=== PATIENT | female | born 1985 | race Caucasian/White ===

== ENCOUNTER → 2016-12-30 | Outpatient (CLI) | payer OTHER ==
[2016-12-30 19:21] LABS: FREE T3 5.01 pg/mL (2.77-5.27)
[2016-12-30 19:34] LABS: THYROID STIMULATING HORMONE 2.64 uIU/mL (0.47-4.68)
== END ==
LOC: OD 16:40
PROVIDERS: ATTEND Physician Assistant Surgical
DX: E07.9 Disorder of thyroid, unspecified (principal)
CPT/HCPCS: 36415; 84439; 84443; 84481

== ENCOUNTER → 2017-07-09 | Outpatient (CLI) | payer OTHER ==
[2017-07-09 18:19] LABS: FREE T3 3.76 pg/mL (2.77-5.27)
[2017-07-09 18:33] LABS: THYROID STIMULATING HORMONE 1.27 uIU/mL (0.47-4.68)
== END ==
LOC: OD 17:04
PROVIDERS: ATTEND Surgery
DX: E07.9 Disorder of thyroid, unspecified (principal)
CPT/HCPCS: 36415; 84439; 84443; 84481

== ENCOUNTER → 2017-11-28 | Outpatient (CLI) | payer OTHER ==
[2017-11-28 12:36] LABS: FREE T4 (FREE THYROXINE) 1.13 ng/dL (0.78-2.19)
[2017-11-28 12:50] LABS: THYROID STIMULATING HORMONE 1.32 uIU/mL (0.47-4.68)
== END ==
LOC: OD 10:32
PROVIDERS: ATTEND Student in an Organized Health Care Education/Training Program
DX: Z34.83 Encounter for supervision of other normal pregnancy, third trimester (principal); Z86.39 Personal history of other endocrine, nutritional and metabolic disease
CPT/HCPCS: 36415; 84439; 84443

== ENCOUNTER 2018-01-01 01:46 | Inpatient (IN) | payer OTHER ==
[2018-01-01] MEDS ORDERED: DINOPROSTONE 10 MG VAGINAL INSERT.SR PV PRN (01:54)
[2018-01-01] MEDS ORDERED: RINGERS SOLUTION,LACTATED 1,000 ML IV PRN (01:54)
[2018-01-01] MEDS ORDERED: RINGERS SOLUTION,LACTATED 300 ML IV ONE (01:54)
[2018-01-01 02:19] LABS: APPEARANCE,URINE CLEAR; BILIRUBIN,URINE NEGATIVE (NEGATIVE); COLOR,URINE STRAW; GLUCOSE, URINE NEGATIVE (NEGATIVE); KETONES,URINE NEGATIVE (NEGATIVE); LEUKOCYTE ESTERASE,URINE MODERATE (NEGATIVE); NITRITE,URINE NEGATIVE (NEGATIVE); PROTEIN,URINE NEGATIVE (NEGATIVE); URINE SPECIFIC GRAVITY 1.003; UROBILINOGEN,URINE NEGATIVE mg/dL (<2.0)
[2018-01-01 02:37] LABS: URINE AMPHETAMINES SCREEN NEGATIVE; URINE BARBITURATES SCREEN NEGATIVE; URINE BENZODIAZEPINES SCREEN NEGATIVE; URINE COCAINE SCREEN NEGATIVE; URINE MARIJUANA (THC) SCREEN NEGATIVE; URINE METHADONE SCREEN NEGATIVE; URINE PHENCYCLIDINE SCREEN NEGATIVE
[2018-01-01 02:50] LABS: ABSOLUTE BASOPHILS # (AUTO) 0.1 10^3/uL (0.0-0.2); ABSOLUTE LYMPHOCYTES (AUTO) 1.3 10^3/uL (0.5-4.7); ABSOLUTE MONOCYTES (AUTO) 0.4 10^3/uL (0.1-1.4); ABSOLUTE NEUT (AUTO) 7.6 10^3/uL (1.7-8.2); BASOPHILS % (AUTO) 0.6 % (0-2); EOSINOPHILS % (AUTO) 0.5 % (0-6); HEMATOCRIT 38.5 % (36.0-47.0); HEMOGLOBIN 13.5 g/dL (12.0-15.5); LYMPHOCYTES % (AUTO) 13.4 % (13-45); MEAN CORPUSCULAR HEMOGLOBIN 32.2 pg (27.0-33.4); MEAN CORPUSCULAR VOLUME 92 fl (80-97); MONOCYTES % (AUTO) 4.7 % (3-13); PLATELET COUNT 153 10^3/uL (150-450); RED BLOOD COUNT 4.19 10^6/uL (3.72-5.28); RED CELL DISTRIBUTION WIDTH 12.6 % (11.5-14.0); SEGMENTED NEUTROPHILS % (AUTO) 80.8 % (42-78); TOTAL CELLS COUNTED % (AUTO) 100 %; WHITE BLOOD COUNT 9.4 10^3/uL (4.0-10.5)
--- NOTE | 2018-01-01 03:31 | Admission Physical ---
Datetime Report Generated by CPN: 01/01/2018 03:30 CURRENT ADMISSION Chief Complaint: Uterine Contractions; Scheduled Induction of Labor Indication for Induction: Post Dates Admit Impression : Term, Intrauterine ; No Active Labor; Intact Membranes; Induction of Labor Admit Plan: Admit to Unit; Initiate Labor Induction Protocol ALLERGIES Medication Allergies: adhesive tape (01/01/2018); latex (01/01/2018) Latex: Latex Allergies OBSTETRICAL HISTORY EDC: 12/17/2017 00:00 : 2 Para: 1 Term: 0 : 0 SAB: 0 IAB: 0 Ectopic: 0 Livin Cesareans: 0 VBACs: 0 Multiple Births: 0 Gestational Diabetes: No Rh Sensitization: No Incompetent Cervix: No MARIAM: No Infertility: No Uterine Anomaly: No IUGR: No Hx Previous C/S: No Macrosomia: No Hx Loss/Stillborn: No PIH: No Hx : No Placenta Previa/Abruption: No Depression/PP Depression: No PTL/PROM: No Post Hemorrhage: No Current Procedures: Ultrasound; NST Obstetrical History Comments: G1 - , 2015 G2 - current SEE RECORDS Alcohol: No Marijuana : No Cocaine: No Other Illicit Drugs: No Cigarettes: Never Smoker. [id number] MEDICAL HISTORY Diabetes: No Blood Transfusion: No Pulmonary Disease (Asthma, TB): No Breast Disease: No Hypertension: No Lead Trainer Surgery: No Heart Disease: No Hosp/Surgery: Yes Autoimmune Disorder: No Anesthetic Complications: No Kidney Disease: No Abnormal Pap Smear: Yes Neuro/Epilepsy: No Psychiatric Disorders: No Hepatitis/Liver Disease: No Varicosities/Phlebitis: No Thyroid Dysfunction: Yes Medical History Comments: hasimotos, wisdom teeth removal, "hole patched in ear drum" when 2009 strain hpv cells? but since have been normal until January 2017 had another abnormal pap smear (unsure of what it was) INFECTIOUS HISTORY Gonorrhea: No Genital Herpes: No Chlamydia: Yes Tuberculosis: No Syphilis: No Hepatitis: No HIV/AIDS Exposure: No Rash or Viral Illness: No HPV: No Infectious History Comments: 2008 chlamydia PHYSICAL EXAM General: Normal HEENT: Normal Neurologic: Normal Thyroid: Deferred Heart: Normal Lungs: Normal Breast: Deferred Back: Normal Abdomen: Normal Genitourinary Exam: Normal Extremities: Normal DTRs: Normal Pelvic Type: Adequate Vital Signs: Reviewed; Within Normal Limits VAGINAL EXAM Dilatation: 1 Effacement: 80 Station: -1 Contraction Comments: q 1-3 FETUS A EGA: 42.1 Monitoring: External US FHR- Baseline: 130 Variability: Moderate 6-25bpm Accelerations: 15X15 Decelerations: None FHR Category: Category I Presentation: Vertex Admit Comment: 32yo at 42+1ega presents for IOL due to Post HEATHER. She is matthew too frequently for cervidil and cytotec. REviewed options with pt for placement of cervical ripening balloon for IOL with poss low dose pitocin (likely would not need pitocin since ctx already). Pt however declines all intervention at this time. 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 GBS was done on 11/23 and therefore by approx 5 days - based on risk factors no treatment indicated. History of VAVD. Will admit and monitor and re-eval in a couple hours as per patient request. pelvis proven to 8#3oz. EFW on 12/21/2017 was 8#10oz PLANS FOR LABOR AND DELIVERY Labor and Delivery: None Pain Management: Natural Feeding Preference: Breast Benefit of Breast Feed Discussed: Yes Circumcision: N/A INFORMED CONSENT Informed Consent Obtained: Vaginal Delivery; Induction of Labor; Risks, Benefits and Alternatives Discussed Signature: with User ID: [email or web address]
--- NOTE | 2018-01-01 10:04 | L&D Progress Notes ---
PROGRESS NOTES Datetime Report Generated by CPN: 01/01/2018 10:03 PROGRESS NOTE Impression: Normal Progression of Labor Procedures: Artificial ROM Plan: Continue Present Management Informed Consent Obtained: Vaginal Delivery; Risks, Benefits and Alternatives Discussed Informed Consent Obtained: Vaginal Delivery; Induction of Labor; Risks, Benefits and Alternatives Discussed Vital Signs : Reviewed Comment: 32 yo admitted for iol/ early contractions EDC 12/17/17 EGA 42+1 dated by first trimester u/s allergies; latex/ bandaids history: +win's after last delivery +HPV- pap proven pelvis to 8 lbs risks and benefits reviewed pt would like to go as natural as possible sve 390/-1 AROM thin meconium gbs negative poc reviewed with pt and family anticipate vaginal delivery VAGINAL EXAM Dilatation: 3 Dilatation: 1 Effacement: 90 Effacement: 80 Station: -1 Station: -1 Contractions: q 1-3 FETUS A FHR - Baseline: 130 Monitoring: External US Variability: Moderate 6-25bpm Accelerations: 15X15 Decelerations: None FHR Category: Category I : 42.1 Presentation: Vertex SIGNATURE SIGNATURE: [id number] SIGNATURE: [id number] Assignment: Sahra Bailey MD Signature: with User ID: [email or web address] : with User ID: [email or web address]
[2018-01-01] MEDS ORDERED: MISOPROSTOL 0.2 MG TABLET ONE (12:32)
[2018-01-01] MEDS ORDERED: LIDOCAINE 1% INJ-PF (10 MG/ML) 30 ML SDV ONE (12:32)
[2018-01-01] MEDS ORDERED: OXYTOCIN/NORMAL SALINE 20 UNIT/1,000 ML RTUINJ ONE (12:32)
--- NOTE | 2018-01-01 13:09 | Warning Signs in Babies ---
VOD Warning Signs Datetime Report Generated by [facility]: 01/01/2018 13:09 VOD#608 -Warning Signs in Babies: Viewed with Parent(s)/Family (01/01/2018 13:00:Fina Cullen RN)
[2018-01-01] MEDS ORDERED: OXYTOCIN/NORMAL SALINE 20 UNIT/1,000 ML RTUINJ IV PRN ×2 (13:10→17:07)
[2018-01-01] MEDS ORDERED: ZOLPIDEM TARTRATE 5 MG TABLET PO PRN ×2 (13:10→17:07)
[2018-01-01] MEDS ORDERED: BENZOCAINE/MENTHOL AEROSOL SPRAY 56 ML TOP PRN ×2 (13:10→17:07)
[2018-01-01] MEDS ORDERED: DIBUCAINE 1% OINTMENT 28 GM TP PRN ×2 (13:10→17:07)
[2018-01-01] MEDS ORDERED: MEASLES,MUMPS&RUBELLA VACC/PF 0.5 ML VIAL SUBCUT PRN ×2 (13:10→17:07)
--- NOTE | 2018-01-01 15:37 | Delivery Summary ---
Del Sum A-C Datetime Report Generated by CPN: 01/01/2018 15:36 DELIVERY PERSONNEL DELIVERY PERSONNEL: [id number] Delivery Doctor:: Stefany Martinez CNM Labor and Delivery Nurse:: Fnia Cullen RNinfrastructure project manager Nurse:: Sabiha James RN Neonatal Nurse Practitioner:: Jane Holt STORE LOSS PREVENTION MANAGER Insole Tack Puller Hand/SENIOR FOREMAN: [facility] Additional Personnel: : [place] MATERNAL INFORMATION Delivery Anesthesia: None Medications After Delivery: Pitocin Bolus-Please Comment; Pitocin Drip 20 Units/1000ml NSS Meds After Delivery Comment: 20 units of pitocin in 1000ml NS bolusing after delivery of placenta as ordered Maternal Complications: None Provider Comments: delivery of viable female apgars 9/9 light meconium nursery nurse at bedside infant to abdomen tactile stimulation elicits spont cry cord clamped and cut by fob cord blood obtained 3vc perineum intact placenta in [place]inton fashion ebl 350cc pt bonding well with hemostasis achieved placenta to pathology LABOR SUMMARY EDC: 12/17/2017 00:00 No. Babies in Womb: 0 Attempted: No Labor Anesthesia: None LABOR INFORMATION Reason for Induction: Post Dates Onset of Labor: 01/01/2018 07:30 Complete Dilatation: 01/01/2018 12:30 Oxytocin: N/A Group B Beta Strep: negative Antibiotics # of Doses: 0 Steroids Given: None Reason Steroids Not Administered: Not Applicable MEMBRANES Membranes Rupture Method: Artificial Rupture of Membranes: 01/01/2018 09:09 Length of Rupture (hr): 3.68 Amniotic Fluid Color: Light Meconium Amniotic Fluid Amount: Moderate Amniotic Fluid Odor: Normal STAGES OF LABOR Stage 1 hr: 5 Stage 1 min: 0 Stage 2 hr: 0 Stage 2 min: 20 Stage 3 hr: 0 Stage 3 min: 4 Total Time in Labor hr: 5 Total Time in Labor min: 24 VAGINAL DELIVERY Episiotomy: None Laceration #1: None Laceration Extension #1: N/A Laceration Repair: Not Applicable Sponge Count Correct: N/A Sharps Count Correct: N/A CSECTION DELIVERY Primary Indication: N/A Other Primary Indication: na Secondary Indication: N/A Other Secondary Indication: na CSection Incidence: N/A Labor: N/A Elective: N/A CSection Incision: N/A CSection Incision- Other: na Other Sterilization Procedure: na BABY A INFORMATION Delivery Date/Time: 01/01/2018 12:50 Method of Delivery: Vaginal Born in Route : No : N/A Forceps: N/A Vacuum Extraction: N/A Shoulder Dystocia : No PRESENTATION/POSITION BABY A Presentation: Cephalic Cephalic Presentation: Vertex Vertex Position: Left Occipital Anterior Breech Presentation: N/A PLACENTA INFORMATION BABY A Placenta Delivery Time : 01/01/2018 12:54 Placenta Method of Delivery: Spontaneous Placenta Status: Delivered SCORES BABY A Heart Rate 1 min: >100 bpm Resp Effort 1 min: Good Cry Reflex Irritability 1 min: Cough or Sneeze or Pulls Away Muscle Tone 1 min: Active Motion Color 1 min: Body [place], Extremities Blue Resuscitation Effort 1 min: Tactile Stimulation SCORE 1 MIN: 9 Heart Rate 5 min: >100 bpm Resp Effort 5 min: Good Cry Reflex Irritability 5 min: Cough or Sneeze or Pulls Away Muscle Tone 5 min: Active Motion Color 5 min: Body [place], Extremities Blue Resuscitation Effort 5 min: N/A SCORE 5 MIN: 9 Resuscitation Effort 10 min: N/A INFORMATION BABY A Gestational Age at Delivery: 42.1 Gestational Status: Post Term- >= 42 Weeks Infant Outcome : Liveborn Infant Condition : Stable Sex: Female IDENTIFICATION BABY A Infant Verification Date/Time: 01/01/2018 13:09 ID Band Number: [id number] Mother's Name Verified: Yes RN Verifying Infant: [place] [facility] Additional Verifying Personnel: C Calera RN WEIGHT/LENGTH BABY A Birthweight (gm): 3895 Weight (lb): 8 Weight (oz): 9 Infant Length (in): 20.25 Infant Length (cm): 51.44 CORD INFORMATION BABY A No. Cord Vessels: 3 Nuchal Cord : N/A Nuchal Cord- Other: foot cord Cord Blood Taken: Yes-For Eval (Mom's Blood Type - or O+) Infant Suction: Mouth; Nose ASSESSMENT BABY A Infant Complications: Meconium Physical Findings at Delivery: Within Normal Limits Physical Findings- Other: cord loop around the foot Respirations: Appears Normal Skin to Skin: Yes Laser Printing Operator/ALS Called : No Infant Care By: Fina Cullen RN Transferred To: Remains with Mother BABY B INFORMATION : N/A SIGNATURES Assignment: Sahra Bailey MD Signature: with User ID: [email or web address] : with User ID: [email or web address]
[2018-01-01] MEDS ORDERED: IBUPROFEN 800 MG TABLET ONE ×2 (15:48→15:50)
[2018-01-01] MEDS ORDERED: DIPH/PERTUSS(ACELL)/TETANUS VAC/PF 0.5 ML SYR (>=10YO) IM PRN (17:07)
[2018-01-01] MEDS ORDERED: FERROUS SULFATE 325 MG TABLET PO SCH (18:00)
[2018-01-01] MEDS ORDERED: DOCUSATE SODIUM 100 MG CAPSULE PO SCH (18:00)
[2018-01-01] MEDS: DOCUSATE SODIUM 100 MG CAPSULE PO SCH (18:36)
[2018-01-01] MEDS: FERROUS SULFATE 325 MG TABLET PO SCH (18:36)
[2018-01-01] MEDS: IBUPROFEN 800 MG TABLET PO SCH (21:40)
[2018-01-01] MEDS ORDERED: IBUPROFEN 800 MG TABLET PO SCH (22:00)
[2018-01-02] MEDS: IBUPROFEN 800 MG TABLET PO SCH ×3 (05:49→21:31)
[2018-01-02 07:47] LABS: HEMATOCRIT 34.8 % (36.0-47.0); MEAN CORPUSCULAR HEMOGLOBIN 31.9 pg (27.0-33.4); MEAN CORPUSCULAR HGB CONC 34.4 g/dL (32.0-36.0); MEAN CORPUSCULAR VOLUME 93 fl (80-97); PLATELET COUNT 147 10^3/uL (150-450); RED BLOOD COUNT 3.75 10^6/uL (3.72-5.28); RED CELL DISTRIBUTION WIDTH 13.1 % (11.5-14.0); WHITE BLOOD COUNT 11.4 10^3/uL (4.0-10.5)
[2018-01-02] MEDS: DOCUSATE SODIUM 100 MG CAPSULE PO SCH ×2 (09:27→17:28)
[2018-01-02] MEDS: FERROUS SULFATE 325 MG TABLET PO SCH ×2 (09:27→17:28)
[2018-01-02] MEDS ORDERED: PRENATAL VITAMIN W DHA CAPSULE PO SCH ×2 (10:00)
[2018-01-02] MEDS ORDERED: SENNOSIDES/DOCUSATE 8.6-50 MG 1 EACH TABLET PO SCH ×2 (10:00)
--- NOTE | 2018-01-02 10:10 | PDOC PROGRESS REPORT ---
Subjective-OB Progress Note for:: 01/02/18 Subjective: s/p day #1 Doing well, denies concerns, states lochia is stable, pain well controlled, voiding without difficulty. Physical Exam (OB) Vital Signs: Temp Pulse Resp BP Pulse Ox 98.5 F 85 16 106/60 98 01/02/18 08:29 01/02/18 08:29 01/02/18 08:29 01/02/18 08:29 01/02/18 08:29 Intake & Output 01/01/18 01/02/18 01/03/18 06:59 06:59 06:59 Intake Total 400 Balance 400 Weight 76 kg - Lochia Lochia Amount: Scant < 10 ml Lochia Color: Rubra/Red - Abdomen Description: Tender, Soft Hernia Present: No Fundal Description: Firm, Midline Fundal Height: u/u - u/2 Objective-Diagnostic Laboratory: 01/02/18 07:15 01/02/18 07:15 WBC 11.4 H RBC 3.75 Hgb 12.0 Hct 34.8 L MCV 93 MCH 31.9 MCHC 34.4 RDW 13.1 Plt Count 147 L Assessment and Plan(PN) - Assessment and Plan (1) Vaginal delivery Is this a current diagnosis for this admission?: Yes Plan: routine pp care - Time Spent with Patient Time with patient: Less than 15 minutes Critical Time spent with patient: Less than 15 minutes Medications reviewed and adjusted accordingly: Yes - Disposition Anticipated Discharge: Home Within: within 24 hours
[2018-01-02 20:27] VITALS: BP 113/69
[2018-01-03] MEDS: IBUPROFEN 800 MG TABLET PO SCH (06:34)
--- NOTE | 2018-01-03 08:42 | PDOC DISCHARGE SUMMARY ---
Final Diagnosis Discharge Date: 01/03/18 - Final Diagnosis (1) Vaginal delivery Is this a current diagnosis for this admission?: Yes Discharge Data - Discharge Medication Prescriptions: Docusate Sodium [Colace 100 mg Capsule] 100 mg PO BID #60 capsule Ibuprofen [Motrin 800 mg Tablet] 800 mg PO Q8 #60 tablet Home Medications: Pnv95/Iron Fum/Folic Acid [ Caplet] 1 tab PO DAILY 03/06/16 Docusate Sodium [Colace 100 mg Capsule] 100 mg PO BID #60 capsule 01/03/18 Ibuprofen [Motrin 800 mg Tablet] 800 mg PO Q8 #60 tablet 01/03/18 Gestational Age: 42.1 Reason(s) for Admission: Onset of Labor, Induction of Labor - matthew when scheduled for induction Procedures: NST Intrapartum Procedure(s): Spontaneous Vaginal Delivery - [place] Data Baby 1 Female at 1 minute: 9 at 5 minutes: 9 Weight: 3895 kg Home with Mother: Yes Complications: No - Diagnosis Test Laboratory: Temp Pulse Resp BP Pulse Ox 98.2 F 71 18 113/69 100 01/02/18 19:50 01/02/18 19:50 01/02/18 19:50 01/02/18 19:50 01/02/18 19:50 01/01/18 01/01/18 01/02/18 01:54 02:31 07:15 RBC 4.19 3.75 Hgb 13.5 12.0 Hct 38.5 34.8 L Urine Opiates Screen NEGATIVE - Discharge information/Instructions Discharge Activity: Activity As Tolerated, Pelvic Rest, No tub bath Discharge Diet: Regular Disposition: HOME, SELF-CARE Follow up with: [facility] in: 4, Weeks
== END 2018-01-03 11:30 | disposition home or self-care (01) | DRG 775 ==
LOC: LR 01:46 → 2S 15:58
PROVIDERS: ADMIT Student in an Organized Health Care Education/Training Program; ATTEND Obstetrics & Gynecology Gynecology
PROC: 10E0XZZ Delivery of Products of Conception, External Approach (ICD-10-PCS; principal; 2018-01-01)
PROC: 10907ZC Drainage of Amniotic Fluid, Therapeutic from Products of Conception, Via Natural or Artificial Opening (ICD-10-PCS; 2018-01-01)
PROC: 4A1HXCZ Monitoring of Products of Conception, Cardiac Rate, External Approach (ICD-10-PCS; 2018-01-01)
DX: O48.0 Post-term pregnancy (principal); E06.3 Autoimmune thyroiditis; O99.284 Endocrine, nutritional and metabolic diseases complicating childbirth; O77.0 Labor and delivery complicated by meconium in amniotic fluid; O69.82X0 Labor and delivery complicated by other cord entanglement, without compression, not applicable or unspecified; Z28.21 Immunization not carried out because of patient refusal; Z91.040 Latex allergy status
CPT/HCPCS: 36415; 80307; 81005; 85025; 85027; 86592; 86850; 86900; 86901; 88307; J2590; J3490